=== PATIENT | male | born 1955 | race American Indian/Alaskan Native ===

== ENCOUNTER 2018-09-14 20:13 | Emergency (ER) | payer MEDICARE ==
[2018-09-14 20:51] VITALS: RESP 18; TEMP 98
--- NOTE | 2018-09-14 21:34 | ED PDOC ---
Arrival/HPI - General Chief Complaint: High Blood Pressure Time Seen by Provider: 09/14/18 20:16 Historian: Patient - History of Present Illness Narrative History of Present Illness (Text): 09/14/18 21:25 62 year old male, whose past medical history includes hypertension, presents to the emergency department with elevated blood pressure. Patient informs he is compliant on his medications, yet has one reading every year where his blood pressure shoots up. Patient states he is on daily Losartan 50mg, HCTZ 25mg, Captopril 50mg. Patient states when he took his blood pressure today, he had a systolic of 200. Patient also informs his usual readings are around 160/90. Patient denies any somatic complaints. Patient denies any headache, dizziness, chest pain, palpitations, shortness of breath, nausea, vomiting, or any other complaints. PMD [place] Time/Duration: Prior to Arrival Context: Home Past Medical History - Provider Review Nursing Documentation Reviewed: Yes - Cardiac Hx Hypertension: Yes - Psychiatric Hx Substance Use: No - Anesthesia Hx Anesthesia: Yes Hx Anesthesia Reactions: No Hx Malignant Hyperthermia: No Family/Social History - Physician Review Nursing Documentation Reviewed: Yes Family/Social History: No Known Family HX Smoking Status: Never Smoked Hx Alcohol Use: No Hx Substance Use: No Allergies/Home Meds Allergies/Adverse Reactions: Allergies No Known Allergies Allergy (Verified 09/14/18 20:45) Review of Systems - Physician Review All systems were reviewed & negative as marked: Yes - Review of Systems Constitutional: absent: Fevers Respiratory: absent: SOB Cardiovascular: absent: Chest Pain, Palpitations Gastrointestinal: absent: Nausea, Vomiting Neurological: absent: Headache, Dizziness Physical Exam Vital Signs Reviewed: Yes Vital Signs Temp Pulse Resp BP Pulse Ox 09/14/18 21:01 199/123 H 09/14/18 20:14 98 F 58 L 18 224/128 H 99 Temperature: Afebrile Blood Pressure: Hypertensive Pulse: Regular Respiratory Rate: Normal Appearance: Positive for: Well-Appearing, Non-Toxic, Comfortable Pain Distress: None Mental Status: Positive for: Alert and Oriented X 3 - Systems Exam Head: Present: Atraumatic, Normocephalic Pupils: Present: PERRL Extroacular Muscles: Present: EOMI Conjunctiva: Present: Normal Mouth: Present: Moist Mucous Membranes Neck: Present: Normal Range of Motion Respiratory/Chest: Present: Clear to Auscultation, Good Air Exchange. No: Respiratory Distress, Accessory Muscle Use Cardiovascular: Present: Regular Rate and Rhythm, Normal S1, S2. No: Murmurs Abdomen: No: Tenderness, Distention, Peritoneal Signs Back: Present: Normal Inspection Upper Extremity: Present: Normal Inspection. No: Cyanosis, Edema Lower Extremity: Present: Normal Inspection. No: Edema Neurological: Present: GCS=15, CN II-XII Intact, Speech Normal Skin: Present: Warm, Dry, Normal Color. No: Rashes Psychiatric: Present: Alert, Oriented x 3, Normal Insight, Normal Concentration Medical Decision Making ED Course and Treatment: 09/14/18 21:36 Impression: 62 year old male presents with elevated blood pressure. Plan: -- EKG -- Labs -- Chest X-ray -- Catapres -- Urinalysis -- Reassess and disposition Prior Visits: Notes and results from previous visits were reviewed. Progress Notes: EKG: SB at 57 bpm, (-) acute ST changes, as read by AAYUSH. CXR : NAD, as read by AAYUSH On reevaluation, patient reports no headache, dizziness, chest pain, shortness of breath, palpitations. On exam, patient remains awake alert and oriented 3 in no acute distress, patient is smiling is cheerful and in good spirits. Repeat neuro exam shows no focal findings. BP 158/102. Diagnostic results d/w the patient. He states that he has an appointment with his pmd on Tuesday09/16/18. Advised to follow up with primary care physician in 1-2 days without fail. Advised to take losartan 50 mg bid for his BP. Return to the emergency room at any time for any new or worsening symptoms. Patient states he fully agrees with and understands discharge instructions. States that he agrees with the plan and disposition. Verbalized and repeated discharge instructions and plan. I have given the patient opportunity to ask any additional questions. - RAD Interpretation Radiology Orders: 09/14/18 21:19 CHEST PORTABLE [RAD] Stat - Medication Orders Current Medication Orders: Discontinued Medications Clonidine HCl (Catapres) 0.2 mg PO STAT STA Stop: 09/14/18 21:20 - PA / [employer] / Resident Statement MD/DO has reviewed & agrees with the documentation as recorded. - Scribe Statement The provider has reviewed the documentation as recorded by the Anna Bray Provider Scribe Attestation: All medical record entries made by the Scribe were at my direction and personally dictated by me. I have reviewed the chart and agree that the record accurately reflects my personal performance of the history, physical exam, medical decision making, and the department course for this patient. I have also personally directed, reviewed, and agree with the discharge instructions and disposition. Disposition/Present on Arrival - Present on Arrival Any Indicators Present on Arrival: No History of DVT/PE: No History of Uncontrolled Diabetes: No Urinary Catheter: No History of Decub. Ulcer: No History Surgical Site Infection Following: None - Disposition Have Diagnosis and Disposition been Completed?: Yes Diagnosis: Uncontrolled hypertension Disposition: HOME/ ROUTINE Disposition Time: 23:00 Patient Plan: Discharge Condition: STABLE Discharge Instructions (ExitCare): High Blood Pressure in Adults, Low Salt Diet, Controlling Your Blood Pressure Through Lifestyle Additional Instructions: Thank you for letting us take care of you today. You were treated for uncontrolled hypertension. The emergency medical care you received today was directed at your acute symptoms. Take losartan 50 mg twice a day tomorrow. It may take several days for your symptoms to resolve. Return to the Emergency Department if your symptoms worsen, do not improve, or if you have any other problems. Please contact your doctor in 2 days for re-evaluation and follow up. Bring any paperwork you were given at discharge with you along with any medications you are taking to your follow up visit. Our treatment cannot replace ongoing medical care by a primary care provider (PCP) outside of the emergency department. Thank you for allowing the [facility] team to be part of your care today. Forms: [employer] ([place])
[2018-09-14 22:03] LABS: PH,URINE 6.5 (4.7-8.0); URINE BILIRUBIN NEGATIVE (NEGATIVE); URINE BLOOD NEGATIVE (NEGATIVE); URINE GLUCOSE (UA) NEGATIVE (NEGATIVE); URINE LEUKOCYTE ESTERASE NEGATIVE Leu/uL (NEGATIVE); URINE PROTEIN NEGATIVE mg/dL (<30 mg/dL); URINE UROBILINOGEN 0.2 E.U./dL (<1 E.U./dL)
[2018-09-14 22:11] LABS: URINE APPEARANCE CLEAR (CLEAR); URINE COLOR COLORLESS (YELLOW)
[2018-09-14 22:15] LABS: BASO # 0.03 K/mm3 (0.0-2.0); BASO % 0.5 % (0.0-3.0); EOS # 0.1 (0.0-0.7); EOS % 1.7 % (1.5-5.0); GRAN # 3.52 (1.4-6.5); GRAN % 60.8 % (50.0-68.0); HEMOGLOBIN 15.2 g/dL (14.0-18.0); LYMPH # 1.5 (1.2-3.4); LYMPH % 26.3 % (22.0-35.0); MEAN CELL VOLUME 84.9 fl (80.0-105.0); MEAN PLATELET VOLUME 9.4 fl (7.0-11.0); MONO # 0.6 (0.1-0.6); MONO % 10.7 % (1.0-6.0); RBC 5.43 10^6/uL (3.5-6.1); RED CELL DISTRIBUTION WIDTH 12.9 % (11.5-14.5); WHITE BLOOD COUNT 5.8 10^3/uL (4.5-11.0)
[2018-09-14 22:18] LABS: INR 1.03; PARTIAL THROMBOPLASTIN TIME 30.3 Seconds (25.1-36.5); PROTHROMBIN TIME 11.8 SECONDS (9.4-12.5)
[2018-09-14 22:30] LABS: ALBUMIN 4.8 g/dL (3.0-4.8); BLOOD UREA NITROGEN 20 mg/dL (7-21); CALCIUM 10.8 mg/dL (8.4-10.5); GFR NON-AFRICAN AMERICAN > 60
[2018-09-14 22:31] LABS: ALB/GLOB RATIO 1.2 (1.1-1.8); ALT/SGPT 33 U/L (7-56); AST/SGOT 33 U/L (17-59)
[2018-09-14 22:40] LABS: B-TYPE NATRIURETIC PEPTIDE 276 pg/mL (0-450); TROPONIN I 0.01 ng/mL
[2018-09-14 23:15] VITALS: BP 163/85; PULSE 61; O2SAT 100
--- NOTE | 2018-09-15 09:19 | RAD ---
Date of service: 09/14/2018 HISTORY: HTN COMPARISON: No prior. FINDINGS: LUNGS: No active pulmonary disease. PLEURA: No significant pleural effusion identified, no pneumothorax apparent. CARDIOVASCULAR: No aortic atherosclerotic calcification present. Normal cardiac size. No pulmonary vascular congestion. OSSEOUS STRUCTURES: No significant abnormalities. VISUALIZED UPPER ABDOMEN: Normal. OTHER FINDINGS: None. IMPRESSION: No active disease.
--- NOTE | 2018-09-15 18:56 | CARD ---
APPROVED REPORT Date of service: 09/14/2018 EKG Measurement Heart [id number] [place] [id number] <Conclusion> Sinus bradycardia Otherwise normal ECG
== END 2018-09-15 00:51 | disposition home or self-care (01) ==
LOC: ED 20:13
DX: I10 Essential (primary) hypertension (principal)